=== PATIENT | male | born 1945 | race Caucasian/White ===

== ENCOUNTER 2021-04-28 07:12 | Inpatient (IN) ==
[2021-04-28] MEDS ORDERED: IOPAMIDOL 100 ML BOTTLE IV ONE (07:13)
[2021-04-28] MEDS ORDERED: ONDANSETRON 4 MG/2 ML VIAL IV ONE (07:21)
[2021-04-28] MEDS ORDERED: fentaNYL 100 MCG/2 ML VIAL IV ONE (07:21)
[2021-04-28] MEDS ORDERED: 0.9 % SODIUM CHLORIDE 1,000 ML IV SCH (07:30)
--- NOTE | 2021-04-28 07:49 | Emergency Department Note ---
Neuro HPI General Chief Complaint: Neuro Symptoms/Deficit Stated Complaint: slurred speech, right arm pain Time Seen by Provider: 04/28/21 07:16 Source: patient, EMS, RN notes reviewed and old records reviewed Mode of arrival: EMS Limitations: no limitations History of Present Illness HPI Narrative: Narrative: 76-year-old male incarcerated at [facility]. Yesterday was complaining of right arm and leg pain after being off his gabapentin x2 days. Has a history of CVA with right facial droop and slurred speech. Yesterday morning while being evaluated at [facility] emergency room it was felt that he was at his neuro baseline with the exception of right arm and leg pain. This morning it was noted more left facial droop and pain on the entire right side of his body. 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 emergency room) Location: speech, left face, right arm and right leg History of same: Yes Severity: moderate Quality: tingling Improves with: none Worsens with: time Context: gradual onset On Anticoagulants: No Treatments Prior to Arrival: none Related Data Allergies Allergy/AdvReac Type Severity Reaction Status Date / Time No Known Drug Allergies Allergy Verified 04/28/21 07:19 Review of Systems ROS ROS Narrative: Narrative: All systems ED: reviewed and negative except as stated. [facility] Narrative Patient History Narrative: Narrative: Medical/Surgical/Family History All Active Problems (Updated 04/28/21 @ 10:48 by David Scott MD) Heat exhaustion (Acute) Acute CVA (cerebrovascular accident) (Acute) Medical History Heat exhaustion Social History Smoking Status: Current every day smoker Exam Narrative Narrative: Narrative: General Limitations: no limitations General appearance: Present alert, in distress and thin Head Head: Present atraumatic, normocephalic and normal inspection Eye Eye: Present normal appearance, PERRL and EOMI; Absent scleral icterus and conjunctival injection ENT ENT: Present normal exam, normal oropharynx and mucous membranes moist Neck Neck: Present normal inspection, full ROM and trachea midline; Absent lymphadenopathy and thyromegaly Chest Chest: Present normal inspection and symmetric chest wall rise Respiratory Respiratory: Present wheezes; Absent respiratory distress, stridor, accessory muscle use and prolonged expiratory phase Cardiovascular Cardiovascular: Present regular rate, normal rhythm and systolic murmur; Absent diastolic murmur Adbominal Abdominal: Present soft and normal bowel sounds; Absent distention, tenderness, guarding, rebound, rigidity, organomegaly and mass Extremities Extremities: Present normal inspection, full ROM and normal capillary refill; Absent pedal edema, pretibial edema and calf tenderness Back Back: Present normal inspection and full ROM; Absent CVA tenderness (R), CVA tenderness (L) and spinous process tenderness Neurological Neurological: Present alert, oriented X3, motor sensory deficit and other (Noting some left facial droop and he has marked tenderness to palpation of his skin on the entire right side of his body.); Absent CN II-XII intact Psychiatric Psychiatric: Present normal affect and normal mood Skin Skin: Present warm (WNL) and dry Course Vital Signs Vital signs: Vital Signs Temperature 98.8 F 04/28/21 07:13 Pulse Rate 60 04/28/21 07:13 Respiratory Rate 16 04/28/21 07:13 Blood Pressure 160/94 04/28/21 07:13 Pulse Oximetry (%) 95 04/28/21 07:13 Temperature 97.2 F 04/28/21 14:06 Pulse Rate 56 L 04/28/21 14:06 Respiratory Rate 18 04/28/21 14:06 Blood Pressure 157/87 04/28/21 14:06 Pulse Oximetry (%) 97 04/28/21 14:06 [facility] MDM Narrative Medical decision making narrative: Narrative: Patient with acute on chronic CVA and neuropathic pain. Consult with telestroke recommends aspirin Plavix Lipitor each 1 AC cholesterol echo MRI and restart the patient's gabapentin. Lab Data Lab results reviewed: Yes I reviewed the patient's lab results. Result diagrams: 04/28/21 07:43 04/28/21 07:43 Labs: Lab Results 04/28/21 04/28/21 04/28/21 Range/Units 07:43 07:43 07:43 WBC 7.9 (4.5-11.0) K/mcL RBC 4.18 L (4.50-5.90) M/mcL Hgb 13.3 L (13.5-16.5) g/dL Hct 39.0 L (41.0-55.0) % MCV 93.3 (80.0-100.0) fL MCH 31.8 (26.0-34.0) pg MCHC 34.1 (31.0-36.0) g/dL RDW 12.3 (11.5-14.5) % Plt Count 173 (140-440) K/mcL MPV 12.1 H (7.4-10.4) fL Neut % (Auto) 58.5 (38.0-78.0) % Lymph % (Auto) 25.3 (15.0-49.0) % [place] % (Auto) 11.0 (1.0-12.0) % Eos % (Auto) 4.7 (0.0-7.0) % Baso % (Auto) 0.5 (0.0-2.0) % Lymph # (Auto) 2.00 (1.50-4.80) K/mcL [place] # (Auto) 0.87 (0.10-0.90) K/mcL Eos # (Auto) 0.37 (0.00-0.70) K/mcL Baso # (Auto) 0.04 (0.00-0.20) K/mcL Absolute Neutrophils 4.62 (1.80-8.00) K/mcL POC PT 11.9 (11.9-14.5) sec PT 13.4 (11.9-14.5) sec POC INR 1.0 (0.8-1.2) INR 1.0 (0.9-1.1) APTT 35.8 (20.0-37.0) sec Sodium 140 (133-145) mmol/L Potassium 3.9 (3.3-5.1) mmol/L Chloride 106 (96-108) mmol/L Carbon Dioxide 23 (22-30) mmol/L Anion Gap 11.0 (8.0-16.0) BUN 10 (8-23) mg/dL Creatinine 0.8 (0.7-1.2) mg/dL POC Creatinine 0.8 (0.6-1.2) mg/dL GFR Calculation 85 Glucose 90 (70-105) mg/dL Calcium 8.4 L (8.6-10.4) mg/dL Total Bilirubin 0.4 (0.1-1.0) mg/dL AST 16 (<40) U/L ALT 10 (<40) U/L Alkaline Phosphatase 82 (39-117) U/L Troponin T (<0.03) ng/mL Total Protein 6.0 (5.9-8.4) gm/dL Albumin 3.7 (3.2-5.2) gm/dL Globulin 2.3 (2.2-3.7) gm/dL Albumin/Globulin Ratio 1.6 (1.0-2.3) Urine Color Urine Appearance (Clear) Urine pH (5.0-9.0) Ur Specific [place] (1.000-1.035) Urine Protein (Negative) mg/dL Urine Glucose (UA) (Negative) mg/dL Urine Ketones (Negative) mg/dL Urine Occult Blood (Negative) filemon/mcL Urine Nitrate (Negative) Urine Bilirubin (Negative) mg/dL Urine Urobilinogen mg/dL Ur Leukocyte Esterase (Negative) /ug 04/28/21 04/28/21 Range/Units 07:43 08:08 WBC (4.5-11.0) K/mcL RBC (4.50-5.90) M/mcL Hgb (13.5-16.5) g/dL Hct (41.0-55.0) % MCV (80.0-100.0) fL MCH (26.0-34.0) pg MCHC (31.0-36.0) g/dL RDW (11.5-14.5) % Plt Count (140-440) K/mcL MPV (7.4-10.4) fL Neut % (Auto) (38.0-78.0) % Lymph % (Auto) (15.0-49.0) % [place] % (Auto) (1.0-12.0) % Eos % (Auto) (0.0-7.0) % Baso % (Auto) (0.0-2.0) % Lymph # (Auto) (1.50-4.80) K/mcL [place] # (Auto) (0.10-0.90) K/mcL Eos # (Auto) (0.00-0.70) K/mcL Baso # (Auto) (0.00-0.20) K/mcL Absolute Neutrophils (1.80-8.00) K/mcL POC PT (11.9-14.5) sec PT (11.9-14.5) sec POC INR (0.8-1.2) INR (0.9-1.1) APTT (20.0-37.0) sec Sodium (133-145) mmol/L Potassium (3.3-5.1) mmol/L Chloride (96-108) mmol/L Carbon Dioxide (22-30) mmol/L Anion Gap (8.0-16.0) BUN (8-23) mg/dL Creatinine (0.7-1.2) mg/dL POC Creatinine (0.6-1.2) mg/dL GFR Calculation Glucose (70-105) mg/dL Calcium (8.6-10.4) mg/dL Total Bilirubin (0.1-1.0) mg/dL AST (<40) U/L ALT (<40) U/L Alkaline Phosphatase (39-117) U/L Troponin T < 0.01 (<0.03) ng/mL Total Protein (5.9-8.4) gm/dL Albumin (3.2-5.2) gm/dL Globulin (2.2-3.7) gm/dL Albumin/Globulin Ratio (1.0-2.3) Urine Color Yellow Urine Appearance Clear (Clear) Urine pH 7.0 (5.0-9.0) Ur Specific [place] 1.020 (1.000-1.035) Urine Protein Negative (Negative) mg/dL Urine Glucose (UA) Negative (Negative) mg/dL Urine Ketones Negative (Negative) mg/dL Urine Occult Blood Negative (Negative) filemon/mcL Urine Nitrate Negative (Negative) Urine Bilirubin Negative (Negative) mg/dL Urine Urobilinogen Normal mg/dL Ur Leukocyte Esterase Negative (Negative) /ug ED POC Tests ED POC Tests: VINCENT - SARS Antigen Negative Radiology Data Radiology results reviewed: Yes I reviewed the patient's radiology results. Radiology results narrative: Head CT FINDINGS: There is a stable old lacunar infarct with encephalomalacia the boundary between the head of the right caudate nucleus and the right bell radiata. It measures 8 x 9 mm. This is unchanged from the prior brain MRI done at [facility] on 11/09/17. In the anterior portion left external capsule there is an ill-defined zone of decreased attenuation. Mild white matter disease was seen at this location on the prior MRI. It has since enlarged. There is no mass effect. This is probably due to chronic ischemic ischemia/degeneration. No acute infarct is detected. There is no hemorrhage or mass effect. Patient has mild atrophy. This is asymmetric and involves the right frontal and temporal lobes greater than left. Ventricles are normal in size. There is no abnormal extra-axial fluid collection. Bone windows show no skull fracture. There is moderate bilateral ethmoid sinusitis and right frontal sinusitis. IMPRESSION: Old infarct in the right basal ganglia Enlarging zone of ischemia/degeneration in the left external capsule Sinusitis CTA Head and Neck NAD Dr. Scott was called with report Interpreted and Authenticated by: aYnick Jacobsen 04/28/21 EKG Data EKG #1: EKG attestation: Yes I reviewed and interpreted this EKG. 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) Condition: Fair Discharge Date/Time: 04/28/21 13:50
[2021-04-28 07:51] LABS: POC Creatinine 0.8 mg/dL (0.6-1.2)
[2021-04-28 07:52] LABS: POC Pro Time 11.9 sec (11.9-14.5)
--- NOTE | 2021-04-28 08:03 | Cat Scan Report ---
History: New stroke symptoms with slurred speech and right arm pain changing mental status, prior infarct TECHNIQUE: The brain was imaged without contrast in axial plane at 2.5 mm intervals. Sagittal and coronal reformats were created. Radiation exposure was limited using dose reduction technology. FINDINGS: There is a stable old lacunar infarct with encephalomalacia the boundary between the head of the right caudate nucleus and the right bell radiata. It measures 8 x 9 mm. This is unchanged from the prior brain MRI done at [facility] on 11/09/17. In the anterior portion left external capsule there is an ill-defined zone of decreased attenuation. Mild white matter disease was seen at this location on the prior MRI. It has since enlarged. There is no mass effect. This is probably due to chronic ischemic ischemia/degeneration. No acute infarct is detected. There is no hemorrhage or mass effect. Patient has mild atrophy. This is asymmetric and involves the right frontal and temporal lobes greater than left. Ventricles are normal in size. There is no abnormal extra-axial fluid collection. Bone windows show no skull fracture. There is moderate bilateral ethmoid sinusitis and right frontal sinusitis. IMPRESSION: Old infarct in the right basal ganglia Enlarging zone of ischemia/degeneration in the left external capsule Sinusitis Dr. Scott was called with report Interpreted and Authenticated by: Yanick Jacobsen 04/28/21
[2021-04-28 08:27] LABS: Basophils # (Auto) 0.04 K/mcL (0.00-0.20); Basophils % (Auto) 0.5 % (0.0-2.0); Eosinophils # (Auto) 0.37 K/mcL (0.00-0.70); Eosinophils % (Auto) 4.7 % (0.0-7.0); Hemoglobin 13.3 g/dL (13.5-16.5); Lymphocytes % (Auto) 25.3 % (15.0-49.0); Mean Cell Volume 93.3 fL (80.0-100.0); Mean Corpuscular HGB Conc 34.1 g/dL (31.0-36.0); Mean Platelet Volume 12.1 fL (7.4-10.4); Monocytes # (Auto) 0.87 K/mcL (0.10-0.90); Neutrophils % (Auto) 58.5 % (38.0-78.0); Platelet Count 173 K/mcL (140-440); RBC 4.18 M/mcL (4.50-5.90); Red Cell Distribution Width 12.3 % (11.5-14.5); WBC 7.9 K/mcL (4.5-11.0)
[2021-04-28 08:29] LABS: Partial Thromboplastin Time 35.8 sec (20.0-37.0); Prothrombin Time 13.4 sec (11.9-14.5)
[2021-04-28 08:38] LABS: ALT/SGPT 10 U/L (<40); AST/SGOT 16 U/L (<40); Albumin 3.7 gm/dL (3.2-5.2); Albumin/Globulin Ratio 1.6 (1.0-2.3); Alkaline Phosphatase 82 U/L (39-117); Bilirubin,Total 0.4 mg/dL (0.1-1.0); Blood Urea Nitrogen 10 mg/dL (8-23); Calcium 8.4 mg/dL (8.6-10.4); Carbon Dioxide 23 mmol/L (22-30); Chloride 106 mmol/L (96-108); Globulin 2.3 gm/dL (2.2-3.7); Glomerular Filtration Rate 85; Glucose 90 mg/dL (70-105)
--- NOTE | 2021-04-28 08:42 | Cat Scan Report ---
History: Acute stroke symptoms with slurred speech and right arm pain TECHNIQUE: Following injection of intravenous nonionic contrast, arterial phase images were acquired from the aortic arch to the top of the head. Sagittal and coronal reformats of the head and neck were created separately along with 3-D volume rendered images of the cervical carotids. Radiation exposure was limited using dose reduction surgery area FINDINGS: Brain: The internal carotids, anterior and middle cerebral arteries are normal in caliber and there is no plaque formation or thrombosis. No aneurysm or vascular malformation are present. The vertebral arteries are nearly symmetric. Basilar artery and posterior fossa circulation are otherwise normal. The patient has hypoplastic anterior and posterior communicating arteries. There is no enhancing lesion within the brain. Cerebral veins appear normal without evidence of thrombosis. NECK: The aortic arch and great vessels arising from the aorta are normal. The aorta is normal in caliber and has no plaque formation. Both common carotids and carotid bifurcations are normal. There is a tiny eccentric calcified plaques along the anterior wall attenuation of both internal carotids. The internal and external carotids are normal in caliber. There is no stenosis or dissection. No thrombosis is present. Proximal portion of the left vertebral is tortuous but normal caliber. There is a less than 50% stenosis of the proximal right vertebral artery where it enters the transverse foramen at C6, due to small spurs. The right vertebral is otherwise normal. There is degenerative disc disease and arthritis in the spine with the greatest degeneration at C6-7. Patient is nearly completely edentulous. There is no evidence of a neck mass. 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 The arterial circulation in the brain and neck is otherwise normal. Dr. Scott was called with the report Interpreted and Authenticated by: Yanick Jacobsen 04/28/21
[2021-04-28 08:49] LABS: Appearance,Urine Clear (Clear); Bilirubin,Urine Negative (Negative); Color,Urine Yellow; Glucose,Urine (UA) Negative (Negative); Ketones,Urine Negative (Negative); Leukocyte Esterase,Urine Negative /ug (Negative); Nitrate,Urine Negative (Negative); Protein,Urine Negative (Negative); Urine Blood Negative ery/mcL (Negative); Urobilinogen,Urine Normal
[2021-04-28] MEDS ORDERED: GABAPENTIN 300 MG CAPSULE PO ONE (09:00)
[2021-04-28] MEDS ORDERED: ATORVASTATIN 40 MG TABLET PO ONE (09:00)
[2021-04-28] MEDS ORDERED: ASPIRIN 325 MG ENTERIC COATED TABLET PO ONE (09:00)
[2021-04-28] MEDS ORDERED: CLOPIDOGREL 75 MG TABLET PO ONE (09:00)
--- NOTE | 2021-04-28 12:30 | EKG ---
[facility] Test Date: 2021-04-28 Pat Name: Benito Teran Department: ED Room: Gender: Male Section Weaver: [id number] : 1945 Requested By: David Scott Order Number: [id number] Reading MD: Suhas Main M.D. Measurements Intervals [place] Rate: 60 P: 46 NM: 149 QRS: 50 QRSD: 110 T: 35 QT: 451 QTc: 451 Interpretive Statements Sinus rhythm Abnormal inferior Q waves NO PRIOR TRACING FOR COMPARISON BORDERLINE ECG Electronically Signed On 04-28-2021 12:30:06 PDT by Suhas Main M.D. /store/M0/[id number]
--- NOTE | 2021-04-28 13:44 | Internal Med History&Physical ---
HPI History of Present Illness Patient information: Note initiated : 04/28/21 at 1:42 pm Service Date, if different from initiated Date: [] Patient: Benito Teran 76 y/o M admitted on for slurred speech, Rt arm pain. Chief Complaint: [] History of present illness: Mr. Teran is a 76 year old male with a history of hypertension, prior stroke, neuropathy who is currently incarcerated and brought to the ED for left facial droop and pain on the right side of his body. Patient had not been taking his gabapentin for the last couple days. Work-up in the ED included a CT head without contrast which showed developing ischemia in the left external capsule, old infarct in the right basal ganglia. 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 Telestroke was consulted, recommended starting aspirin, Plavix and statin and completing an ischemic stroke work-up. Internal medicine was asked to admit the patient. Review of systems Constitutional: no fever, fatigue, or weight loss Eyes: no vision changes or pain Cardiovascular: no chest pain, no palpitations Respiratory: no cough or dyspnea Gastrointestinal: no abdominal pain, no nausea, vomiting, or diarrhea Genitourinary: no dysuria or difficulty voiding Musculoskeletal: no arthralgia or myalgia Integumentary: no skin lesion or wound Neurological: difficulty speaking, right upper and lower extremity pain Psychiatric: no anxiety or depression Physical exam Head: Atraumatic, normal inspection. Eyes: normal appearance, no scleral icterus. Neck: full ROM Respiratory: no respiratory distress. Cardiovascular: normal rate and rhythm, S1, S2. GI/Abdominal: soft, nontender, no guarding. Extremities: full range of motion, nontender. Neurological: dysarthria, right upper extremity weakness, neuropathic type tenderness in right lower extremity Psychiatric: normal mood. Skin: warm, normal color PFSH PFSH All Active Problems (Updated 04/28/21 @ 10:48 by David Scott MD) Heat exhaustion (Acute) Acute CVA (cerebrovascular accident) (Acute) Medical History Heat exhaustion MEDS/ALLERGIES Home Medications and Allergies Allergies Allergy/AdvReac Type Severity Reaction Status Date / Time No Known Drug Allergies Allergy Verified 04/28/21 07:19 EXAM Constitutional Vitals: Temp Pulse Resp BP Pulse Ox 98.8 F 55 L 17 148/82 97 04/28/21 07:13 04/28/21 12:16 04/28/21 13:27 04/28/21 13:17 04/28/21 12:16 DATA Data Completed and Pending Labs: Labs from last 24 hours 04/28/21 04/28/21 04/28/21 08:08 07:43 07:43 WBC RBC Hgb Hct MCV MCH MCHC RDW Plt Count MPV Neut % (Auto) Lymph % (Auto) [place] % (Auto) Eos % (Auto) Baso % (Auto) Lymph # (Auto) [place] # (Auto) Eos # (Auto) Baso # (Auto) Absolute Neutrophils POC PT PT POC INR INR APTT Sodium 140 Potassium 3.9 Chloride 106 Carbon Dioxide 23 Anion Gap 11.0 BUN 10 Creatinine 0.8 POC Creatinine 0.8 GFR Calculation 85 Glucose 90 Calcium 8.4 L Total Bilirubin 0.4 AST 16 ALT 10 Alkaline Phosphatase 82 Troponin T < 0.01 Total Protein 6.0 Albumin 3.7 Globulin 2.3 Albumin/Globulin Ratio 1.6 Urine Color Yellow Urine Appearance Clear Urine pH 7.0 Ur Specific [place] 1.020 Urine Protein Negative Urine Glucose (UA) Negative Urine Ketones Negative Urine Occult Blood Negative Urine Nitrate Negative Urine Bilirubin Negative Urine Urobilinogen Normal Ur Leukocyte Esterase Negative 04/28/21 04/28/21 07:43 07:43 WBC 7.9 RBC 4.18 L Hgb 13.3 L Hct 39.0 L MCV 93.3 MCH 31.8 MCHC 34.1 RDW 12.3 Plt Count 173 MPV 12.1 H Neut % (Auto) 58.5 Lymph % (Auto) 25.3 [place] % (Auto) 11.0 Eos % (Auto) 4.7 Baso % (Auto) 0.5 Lymph # (Auto) 2.00 [place] # (Auto) 0.87 Eos # (Auto) 0.37 Baso # (Auto) 0.04 Absolute Neutrophils 4.62 POC PT 11.9 PT 13.4 POC INR 1.0 INR 1.0 APTT 35.8 Sodium Potassium Chloride Carbon Dioxide Anion Gap BUN Creatinine POC Creatinine GFR Calculation Glucose Calcium Total Bilirubin AST ALT Alkaline Phosphatase Troponin T Total Protein Albumin Globulin Albumin/Globulin Ratio Urine Color Urine Appearance Urine pH Ur Specific [place] Urine Protein Urine Glucose (UA) Urine Ketones Urine Occult Blood Urine Nitrate Urine Bilirubin Urine Urobilinogen Ur Leukocyte Esterase A/P Narrative A/P Narrative: Assessment: 76 year old male with a history of hypertension, prior stroke, neuropathy Who is currently incarcerated and brought to the ED for left facial droop and pain on the right side of his body and found to have an area of developing ischemia in the left external capsule. #Subacute ischemic stroke involving the left external capsule #Hypertension #Neuropathy #Hx of right basal ganglia stroke #Incarceration Plan -Start Aspirin, Plavix, Atorvastatin. -Permissive blood pressure. -MRI brain -ECHO -Hgb A1C, lipid panel -lunchroom monitor-monitor for afib/flutter -Neurochecks/NIH Stroke Scale -PT, OT, Speech -NPO until cleared by speech -DVT ppx: Lovenox SQ -Code status: Full -Disposition: TBD Time Spent With Patient Time: Total time spent is greater than 50% in coordination of care (as documented) at patient's floor/unit and/or counseling patient:
[2021-04-28] MEDS ORDERED: ONDANSETRON 4 MG/2 ML VIAL IV PRN (13:53)
[2021-04-28] MEDS ORDERED: LABETALOL 5 MG/ML ML IV PRN (13:55)
[2021-04-28] MEDS: 0.9 % SODIUM CHLORIDE 10 ML SYRINGE IV SCH ×2 (15:41→20:57)
--- NOTE | 2021-04-28 16:07 | Magnetic Resonance Report ---
History: Stroke symptoms with slurred speech and right arm pain with altered mental status TECHNIQUE: Stroke protocol was performed. FINDINGS: There is an old infarct with encephalomalacia at the boundary of the right internal capsule and body of the right caudate nucleus. No new infarct is present. There is no hemorrhage or mass. The region of decreased attenuation seen in the left external capsule on the preceding head CT performed today appears to be due to normal age-related degenerative changes. There is no evidence of acute ischemia in this region. Ventricles are normal in size. There is no abnormal extra-axial fluid collection. Mild atrophy is noted. There is moderate bilateral ethmoid sinusitis. IMPRESSION: No acute infarct or hemorrhage Dr. Yee was called with the report Interpreted and Authenticated by: Yanick Jacobsen 04/28/21
[2021-04-28] MEDS: GABAPENTIN 300 MG CAPSULE PO SCH ×2 (16:14→20:56)
[2021-04-28] MEDS ORDERED: ATORVASTATIN 40 MG TABLET PO SCH (21:00)
[2021-04-28] MEDS ORDERED: SENNOSIDES 1 TABLET PO SCH (21:00)
[2021-04-29] MEDS: 0.9 % SODIUM CHLORIDE 10 ML SYRINGE IV SCH ×2 (05:08→15:01)
[2021-04-29 06:43] LABS: Basophils # (Auto) 0.04 K/mcL (0.00-0.20); Basophils % (Auto) 0.5 % (0.0-2.0); Eosinophils # (Auto) 0.37 K/mcL (0.00-0.70); Eosinophils % (Auto) 4.6 % (0.0-7.0); Hematocrit 40.3 % (41.0-55.0); Hemoglobin 13.5 g/dL (13.5-16.5); Lymphocytes # (Auto) 1.62 K/mcL (1.50-4.80); Lymphocytes % (Auto) 20.3 % (15.0-49.0); Mean Cell Volume 93.1 fL (80.0-100.0); Mean Corpuscular HGB Conc 33.5 g/dL (31.0-36.0); Mean Platelet Volume 10.9 fL (7.4-10.4); Monocytes # (Auto) 0.85 K/mcL (0.10-0.90); Monocytes % (Auto) 10.6 % (1.0-12.0); Platelet Count 223 K/mcL (140-440); RBC 4.33 M/mcL (4.50-5.90)
[2021-04-29 07:10] LABS: Blood Urea Nitrogen 11 mg/dL (8-23); Calcium 8.8 mg/dL (8.6-10.4); Carbon Dioxide 24 mmol/L (22-30); Chloride 103 mmol/L (96-108); Glomerular Filtration Rate 85; Glucose 88 mg/dL (70-105); HDL Cholesterol 36 mg/dL (>40); LDL Cholesterol,Calculated 42 mg/dL (<100); Non-HDL Cholesterol 57 mg/dL (<130); Triglycerides 78 mg/dL (<150)
[2021-04-29] MEDS: GABAPENTIN 300 MG CAPSULE PO SCH ×2 (07:30→15:35)
[2021-04-29] MEDS ORDERED: ASPIRIN 81 MG TAB.CHEW CHEWED SCH (09:00)
[2021-04-29] MEDS ORDERED: CLOPIDOGREL 75 MG TABLET PO SCH (09:00)
[2021-04-29] MEDS ORDERED: ENOXAPARIN 40 MG/0.4 ML SYRINGE SQ SCH (09:00)
--- NOTE | 2021-04-29 14:51 | Discharge Summary ---
Discharge Provider Provider Patient information: Note initiated : 04/29/21 at 2:48 pm Service Date, if different from initiated Date: [] Patient: Benito Teran 76 y/o M admitted on 04/28/21 for slurred speech, Rt arm pain. Chief Complaint: [] Date of admission: 04/28/21 13:51 Discharge date: 04/29/21 Primary care physician: Ras Staples Consults: 04/28/21 Consult to Physician [CONS] Stat Comment: Consulting Provider: Jacoby Yee Reason For Exam: Physician to Consult 04/28/21 08:52 Consult to Physician [CONS] Stat Comment: Consulting Provider: Octavio Harmon Reason For Exam: Physician to Consult Discharge Meds Discharge Medications Home Medications aspirin 81 mg PO QAM 04/28/21 [History Confirmed 04/28/21 Last Taken Unknown] atorvastatin 80 mg PO QHS 04/28/21 [History Confirmed 04/28/21 Last Taken Unknown] diphenhydramine HCl 50 mg PO Q6H PRN 04/28/21 [History Confirmed 04/28/21 Last Taken Unknown] gabapentin 300 mg PO BID 04/28/21 [History Confirmed 04/28/21 Last Taken Unknown] lisinopril 10 mg PO QDAY 04/28/21 [History Confirmed 04/28/21 Last Taken Unknown] omeprazole 20 mg PO QDAY 04/28/21 [History Confirmed 04/28/21 Last Taken Unknown] COURSE Hospital Course Hospital course: Mr. Teran is a 76 year old male with a history of hypertension, prior stroke, neuropathy who is currently incarcerated and brought to the ED for left facial droop and pain on the right side of his body. Patient had not been taking his gabapentin for the last couple days. Work-up in the ED included a CT head without contrast which showed developing ischemia in the left external capsule, old infarct in the right basal ganglia. 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 Telestroke was consulted, recommended starting aspirin, Plavix and statin and completing an ischemic stroke work-up. Internal medicine was asked to admit the patient. 04/29 MRI brain was negative for acute stroke, cancelled stroke workup. Ordered MRI cervical spine for right upper extremity weakness however the patient was not cooperative therefore not completed. Discharged back to nursing home with outpatient MRI cervical spine. Physical exam Head: Atraumatic, normal inspection. Eyes: normal appearance, no scleral icterus. Neck: full ROM Respiratory: no respiratory distress. Cardiovascular: normal rate and rhythm, S1, S2. GI/Abdominal: soft, nontender, no guarding. Extremities: full range of motion, nontender. Neurological: dysarthria, right upper extremity weakness, neuropathic type tenderness in right lower extremity Psychiatric: normal mood. Skin: warm, normal color Discharge diagnosis: Right upper extremity weakness Time Spent with Patient Time attestation: Total time spent providing and/or coordinating discharge services: EXAM Constitutional Vitals: Temp Pulse Resp BP Pulse Ox 98.4 F 58 L 17 149/97 97 04/29/21 12:19 04/29/21 12:19 04/29/21 08:03 04/29/21 08:01 04/29/21 12:19 Discharge Data Data Completed and Pending Labs on day of discharge: Labs from last 24 hours 04/29/21 04/29/21 05:06 05:06 WBC 8.0 RBC 4.33 L Hgb 13.5 Hct 40.3 L MCV 93.1 MCH 31.2 MCHC 33.5 RDW 12.0 Plt Count 223 MPV 10.9 H Neut % (Auto) 64.0 Lymph % (Auto) 20.3 [place] % (Auto) 10.6 Eos % (Auto) 4.6 Baso % (Auto) 0.5 Lymph # (Auto) 1.62 [place] # (Auto) 0.85 Eos # (Auto) 0.37 Baso # (Auto) 0.04 Absolute Neutrophils 5.11 Sodium 137 Potassium 4.2 Chloride 103 Carbon Dioxide 24 Anion Gap 10.0 BUN 11 Creatinine 0.8 GFR Calculation 85 Glucose 88 Calcium 8.8 Triglycerides 78 Cholesterol 93 LDL Cholesterol, Calc 42 Non-HDL Cholesterol 57 HDL Cholesterol 36 L Discharge Plan Patient/Caregiver Discharge Instructions Activity: increase activity as tolerated Diet: Regular Diet Instructions: Aspirin (By mouth), Clopidogrel (By mouth), Ischemic Stroke (GEN) Activity Restrictions/Additional Instructions: This discharge packet is provided to you to help keep you informed about your care. We want to ensure you get everything you need when you go home. You will also be receiving a call from us in a few days to follow up with you and see how you are doing since your discharge. This gives us a chance to listen to any concerns you maybe experiencing since you were discharged or any additional needs you may have, as well as providing us feedback on your care experience. We strive to always provide excellent care and thank you for your feedback and for choosing [facility]. Prescriptions: Continued aspirin 81 mg Capsule,Delayed Release(Dr/Ec) 81 mg PO QAM RF: 0 atorvastatin 80 mg Tablet 80 mg PO QHS RF: 0 diphenhydramine HCl 50 mg Capsule 50 mg PO Q6H PRN (Reason: Allergic Reaction) RF: 0 gabapentin 300 mg Capsule 300 mg PO BID RF: 0 lisinopril 10 mg Tablet 10 mg PO QDAY RF: 0 omeprazole 20 mg Capsule,Delayed Release(Dr/Ec) 20 mg PO QDAY RF: 0 Other Ambulatory Orders: MR cervical spine wo con (Routine) Timeframe: 1 Day Facility: [facility] - Location: Radiology Ordered By: Jacoby Yee Follow Up Plan Follow up with: Suhas Main MD [Physician] - (Follow up with your PCP after discharge) Ras Staples DO [Primary Care Provider] - Patient Disposition: Xfer Other Prognosis: Fair Discharge Orders: Discharge Order (Routine); Ordered 04/29/21 Ordered By: Jacoby Yee QUALITY VTE Deep Vein Thrombosis/Pulmonary Embolism Present on Admission: No
[2021-04-29] MEDS ORDERED: PNEUMOCOCCAL 23-VAL P-SAC VAC 0.5 ML SYRINGE IM ONE ×2 (16:00)
== END 2021-04-29 16:00 | disposition other institution (70) | DRG 65 ==
LOC: ED 07:12 → ICU 13:50
PROVIDERS: ADMIT Internal Medicine; ATTEND Internal Medicine